=== PATIENT | male | born 1985 | race Caucasian/White ===

== ENCOUNTER 2021-04-12 02:05 | Emergency (ER) | payer SELFPAY ==
--- NOTE | 2021-04-12 01:53 | ECG_ITS ---
APPROVED REPORT Exam: Resting ECG HR:92 bpm ECG Measurements Heart Rate 92 AXES SC 152 P 73 QRSd 98 QRS 66 QT 321 T 53 QTc 371 Conclusion SINUS RHYTHM NORMAL ECG UNCONFIRMED REPORT Electronically signed by : Lawrence Moran MD 04/13/2021 19:02:40
[2021-04-12 02:06] VITALS: BP 190/120; PULSE 92; RESP 21; TEMP 36.9; O2SAT 99; BMI 31.5
--- NOTE | 2021-04-12 02:24 | XR_ITS ---
PROCEDURE INFORMATION: Exam: XR Chest Exam date and time: 04/12/2021 2:24 AM Age: 35 years old Clinical indication: Shortness of breath; Additional info: SOA TECHNIQUE: Imaging protocol: XR of the chest. Views: 2 views. COMPARISON: No relevant prior studies available. FINDINGS: Tubes, catheters and devices: Leads overlying chest. Lungs: No consolidation. Pleural spaces: No significant pleural effusion. No pneumothorax. Heart/Mediastinum: No cardiomegaly. Bones/joints: Anchors within RIGHT shoulder. Soft tissues: Unremarkable. Intraperitoneal space: Surgical clips within RIGHT upper quadrant. IMPRESSION: No definite acute cardiopulmonary disease.
[2021-04-12 02:30] VITALS: BP 180/102; PULSE 85; RESP 17; O2SAT 96
[2021-04-12 02:43] LABS: Coronavirus 19, PCR Not Detected (NotDetected); Influenza A, PCR Not Detected (NotDetected); Influenza B, PCR Not Detected (NotDetected); Microscopic, Urine URINE MICROSCOPIC (MICROSCOPIC)
--- NOTE | 2021-04-12 02:45 | CT_ITS ---
PROCEDURE INFORMATION: Exam: CT Abdomen And Pelvis With Contrast Exam date and time: 04/12/2021 2:45 AM Age: 35 years old Clinical indication: Prior surgery; Patient HX: Left sided abdominal pain with distention. HX cholecystectomy; Additional info: Esme abd pain with distention TECHNIQUE: Imaging protocol: Computed tomography of the abdomen and pelvis with contrast. Radiation optimization: All CT scans at this facility use at least one of these dose optimization techniques: automated exposure control; mA and/or kV adjustment per patient size (includes targeted exams where dose is matched to clinical indication); or iterative reconstruction. Contrast material: ISOVUE; Contrast volume: 75 ml; Contrast route: IV; COMPARISON: No relevant prior studies available. FINDINGS: Liver: Fatty infiltration. Gallbladder and bile ducts: Cholecystectomy. No significant ductal dilation. Pancreas: Unremarkable. No ductal dilation. Spleen: No splenomegaly. Adrenal glands: No mass. Kidneys and ureters: Several small renal calculi. Several too small to characterize lesions within kidneys (<1 cm). 1.7 cm lesion within RIGHT kidney, indeterminate by CT criteria. No significant hydronephrosis. Stomach and bowel: Mild mural thickening vs underdistention of LEFTcolon. No associated inflammatory stranding. No obstruction. Appendix: Normal caliber. No inflammation. Intraperitoneal space: No significant fluid collection. No definite free air. Vasculature: Minimal atherosclerotic disease of aorta. No aneurysm. Lymph nodes: No pathologically enlarged lymph nodes. Urinary bladder: Borderline bladder wall thickening, up to 4-5 mm. Incomplete distention, limiting evaluation. Reproductive: Unremarkable as visualized. Bones/joints: Probable bone islands. No acute fracture. Soft tissues: Unremarkable. IMPRESSION: 1. Mild colitis versus underdistention. Clinical correlation is needed. 2. Cystitis vs underdistention. Correlate with urinalysis. 3. RIGHT kidney lesion, incompletely characterized. Recommend nonemergent MRI. COMMENTS: Consistent with the [employer]'s Incidental Findings Committee white paper (J Am [employer]iol 2018): Any incidental renal lesion less than 1 cm or classified as too small to characterize, or any incidental cystic renal lesion characterized as simple-appearing, is likely benign. No follow-up imaging is recommended for these lesions per consensus recommendations based on imaging criteria.
[2021-04-12 02:52] LABS: Appearance,Urine CLEAR (Clear); Bilirubin,Urine Negative (Negative); Blood, Urine Negative (Negative); Color,Urine YELLOW (Yellow); Glucose,Urine (UA) Negative (Negative); Ketones,Urine Negative (Negative); Leukocyte Esterase,Urine TRACE (Negative); Nitrate,Urine Negative (Negative); PH,Urine 5.5 (5.0-8.5); Protein,Urine Negative (Negative); Specific Gravity, Urine 1.025 (1.005-1.030); Urobilinogen,Urine 0.2 EU/dl (0.2)
[2021-04-12 02:54] LABS: Basophils # 0.3 K/mm3 (0-0.2); Basophils % 3.8 % (0.1-2.0); Eosinophils # 0.1 K/mm3 (0.0-0.4); Eosinophils % 1.9 % (0.1-12.0); Hematocrit 53.1 % (42.0-52.0); Hemoglobin 17.1 g/dL (14.1-18.0); Lymphocytes # 2.3 K/mm3 (0.7-4.5); Lymphocytes % 32.7 % (10-50); Mean Corpuscular HGB Conc 32.3 g/dL (31.8-35.4); Mean Corpuscular Hemoglobin 32.6 pg (27.0-31.2); Mean Corpuscular Volume 101.1 fl (80-94); Mean Platelet Volume 7.7 fl (7.4-10.4); Monocytes # 0.7 K/mm3 (0.1-1.0); Neutrophils # 3.7 K/mm3 (1.8-7.8); Neutrophils % 51.6 % (37.0-80.0); Platelet Count 253 K/mm3 (142-424); Red Blood Count 5.25 M/mm3 (4.60-6.20); Red Cell Distribution Width 12.9 % (11.5-17.5); White Blood Count 7.2 K/mm3 (4.8-10.8)
[2021-04-12 02:59] LABS: Ethyl Alcohol 39 mg/dl (0-10)
[2021-04-12 03:00] VITALS: BP 149/98; PULSE 84; RESP 16; O2SAT 96
[2021-04-12 03:00] LABS: Alanine Aminotransferase 197 U/L (12-78); Albumin Level 4.6 g/dl (3.5-5.0); Albumin/Globulin Ratio 1.4 (1.1-1.8); Alkaline Phosphatase 98 U/L (38-126); Amylase 63 U/L (30-110); Anion Gap 14.3 mEq/L (5-15); Aspartate Amino Transferase 230 U/L (17-59); Bilirubin,Total 0.5 mg/dl (0.2-1.3); Blood Urea Nitrogen 17 mg/dl (9-20); Calcium 9.4 mg/dl (8.4-10.2); Carbon Dioxide 25 mmol/L (22.0-30.0); Chloride 102 mmol/L (98-107); Creatinine Clearance Estimated 184 mL/min (50-200); Estimated Glomerular Filt Rate 111 ml/min (>60); GFR (African American) 134 ML/MIN (>60); Globulin 3.3 g/dL (1.3-3.2); Glucose 90 mg/dl (74-100); Lipase 148 U/L (23-300); Magnesium 1.6 mg/dl (1.6-2.3); Potassium 4.3 mmoL/L (3.5-5.1); Sodium 137 mmol/L (136-145); Total Protein,Serum 7.9 g/dl (6.3-8.2)
[2021-04-12 03:04] LABS: Benzodiazepines Screen,Urine Negative ng/ml (<200)
[2021-04-12 03:05] LABS: Amphetamine/Metha Screen,Urine Negative ng/ml (<1000); Barbiturates Screen,Urine Negative ng/ml (<200); C-Reactive Protein 0.6 mg/L (0-4)
[2021-04-12 03:06] LABS: Cannabinoid Screen,Urine Negative ng/ml (<50)
[2021-04-12 03:07] LABS: Cocaine Screen,Urine Negative ng/ml (<300); Methadone Screen,Urine Negative ng/ml (<300)
[2021-04-12 03:08] LABS: Opiate Screen,Urine Negative ng/ml (<300); Phencyclidine Screen,Urine Negative ng/ml (<25)
[2021-04-12 03:19] LABS: Procalcitonin 0.099 ng/mL (0.0-2.0)
[2021-04-12 03:28] LABS: Acetaminophen < 10 ug/ml (10-30); Salicylate < 1.0 mg/dL (2.0-20.0); Troponin I < 0.01 ng/ml (0.00-0.034)
[2021-04-12 04:12] LABS: Erythrocyte Sedimentation Rate 8 mm/hr (0-15)
[2021-04-12 04:21] LABS: Bacteria,Urine Trace /lpf; WBC,Urine Occasional #/hpf (0-3)
--- NOTE | 2021-04-12 04:48 | [facility].EDNVD ---
ED Disposition Clinical Impression: Abdominal pain Qualifiers: Abdominal location: left upper quadrant Qualified Code(s): R10.12 - Left upper quadrant pain Disposition: Home, Self-Care Condition on Discharge: Good Instructions: DI for Acute Abdominal Pain Additional Instructions: see pcp for follow up Referrals: Provider,Referral, [Primary Care Provider] - - Critical Care Critical Care Time: No Attestation: On 04/12/21, the high probability of a clinically significant, sudden or life threatening deterioration of the following system(s) required my full and direct attention, intervention and personal management. The time I documented below is in addition to time spent performing reported procedures but includes the following listed in this critical care notation. Medical Decision Making - Medical Records Medical records reviewed: Yes: I reviewed the patient's medical records. - Clement Inquiry Pt receiving controlled substance: No Vital Signs: 04/12/21 02:06 04/12/21 02:30 04/12/21 03:00 Temperature 98.5 F Temperature Source Oral Pulse Rate 85 84 Pulse Rate [Left] 92 H Respiratory Rate 21 17 16 Blood Pressure 180/102 H 149/98 H Blood Pressure [Left Arm] 190/120 H Blood Pressure Mean 120 123 Blood Pressure Mean [Left Arm] 143 Blood Pressure Source [Left Arm] Manual Cuff/ Auscultation Blood Pressure Position [Left Arm] Supine 02 Sat by Pulse Oximetry 99 96 96 Oxygen Delivery Method Room Air Room Air Room Air - Lab Data Lab results reviewed: Yes: I reviewed the patient's lab results. Lab Results 04/12/21 02:07: Urine Color Yellow, Urine Appearance Clear, Urine pH 5.5, Ur Specific [place] 1.025, Urine Protein Negative, Urine Glucose (UA) Negative, Urine Ketones Negative, Urine Blood Negative, Urine Nitrate Negative, Urine Bilirubin Negative, Urine Urobilinogen 0.2, Ur Leukocyte Esterase Trace, Urine WBC Occasional, Urine Bacteria Trace 04/12/21 02:07: WBC 7.2, RBC 5.25, Hgb 17.1, Hct 53.1 H, MCV 101.1 H, MCH 32.6 H, MCHC 32.3, RDW 12.9, Plt Count 253, MPV 7.7, Neut % (Auto) 51.6, Lymph % (Auto) 32.7, [place] % (Auto) 10.0 H, Eos % (Auto) 1.9, Baso % (Auto) 3.8 H, Neut # (Auto) 3.7, Lymph # (Auto) 2.3, [place] # (Auto) 0.7, Eos # (Auto) 0.1, Baso # (Auto) 0.3 H, ESR 8 04/12/21 02:07: Sodium 137, Potassium 4.3, Chloride 102, Carbon Dioxide 25, Anion Gap 14.3, BUN 17, Creatinine 0.80, Estimated Creat Clear 184, Estimated GFR 111, Est GFR ( Amer) 134, Glucose 90, Calcium 9.4, Magnesium 1.6, Total Bilirubin 0.5, AST 230 H, ALT 197 H, Alkaline Phosphatase 98, Troponin I < 0.01, C-Reactive Protein 0.6, Total Protein 7.9, Albumin 4.6, Globulin 3.3 H, Albumin/Globulin Ratio 1.4, Amylase 63, Lipase 148, Procalcitonin 0.099, Salicylates < 1.0 L, Acetaminophen < 10 L 04/12/21 02:07: SARS-CoV-2 (PCR) Not detected, Influenza A Untype (PCR) Not detected, Influenza Type B (PCR) Not detected 04/12/21 02:07: Urine Opiates Screen Negative, Urine Methadone Screen Negative, Ur Barbituates Screen Negative, Ur Phencyclidine Scrn Negative, Ur Amphetamines Screen Negative, U Benzodiazepines Scrn Negative, Urine Cocaine Screen Negative, U Marijuana (THC) Screen Negative 04/12/21 02:07: Plasma/Serum Alcohol 39 H Result diagrams: 04/12/21 02:07 04/12/21 02:07 Orders (Tests/Meds): ED MEDICATIONS Generic Name Dose Route Start Last Admin Trade Name Freq PRN Reason Stop Dose Admin Sodium Chloride 1,000 mls @ 999 mls/hr 04/12/21 02:30 04/12/21 02:31 Sod Chlor 0.9% 1000ml Bag IV 04/12/21 03:30 999 mls/hr .Q1H1M HOOD Administration Discontinued Medications Generic Name Dose Route Start Last Admin Trade Name Freq PRN Reason Stop Dose Admin Iopamidol 75 ml 04/12/21 03:49 04/12/21 03:49 Iopamidol-370 (76%);100ml Bottle IV 04/12/21 03:50 75 ml ONCE ONE Administration Ondansetron HCl 4 mg 04/12/21 02:28 04/12/21 02:31 Ondansetron 4mg/2ml Vial IV 04/12/21 02:29 4 mg ONCE ONE Adm
[2021-04-12 05:03] VITALS: BP 138/92; PULSE 80; RESP 20; TEMP 36.8; O2SAT 97
== END 2021-04-12 05:17 | disposition home or self-care (01) ==
PROVIDERS: Emergency Provider Emergency Medicine
DX: R10.12 Left upper quadrant pain (principal); I10 Essential (primary) hypertension; F10.10 Alcohol abuse, uncomplicated
CPT/HCPCS: 71046; 74177; 80053; 80305; 80329; 81001; 82150; 83690; 83735; 84145; 84484; 85025; 85651; 86140; 93005; 96365; 96375; 99283; C9803; J2405; Q9967; U0003; U0005